=== PATIENT | male | born 1945 | race Caucasian/White ===

== ENCOUNTER 2016-12-16 09:52 | Observation (INO) | payer MEDICARE ==
[~2016-12-16] VITALS: Ht 167.6 cm; Wt 109.6 kg
[~2016-12-16 09:52] MED LIST: ALLEGRA-D 2424 HOUR PO; ATORVASTATI80 MG/TAB PO; AUGMENTIN500TAB PO; BLOOD GLUCOSE TEST S VI; CLONIDINE0.1 MG PO; DOXYCYCL HYC100 MG PO; FLONASE NASAL50 MCG; GLIPIZIDE5 MG PO; HYDROCHLOROT25 MG PO; LISINOPRIL20 MG PO; LORTAB 5-325 MG1 TAB PO; METFORMIN HCL1000 MG PO; METFORMIN500 MG PO; METOCLOPRAM10 MG PO; METOPROL TAR100 MG PO; METOPROL TAR25 MG PO; PANTOPRAZOLE SO40 MG PO; ZESTRIL40 MG PO
--- NOTE | 2016-12-16 10:05 | NUR ---
PT ALERT AND ORIENTED X 4, AIRWAY PATENT, RESP EVEN AND NON LABORED, SKIN P/W/D. NAIL BEDS ON BILATERAL HANDS APPEAR CYANOTIC. COOL TO TOUCH. POSITIVE RADIAL PULSES NOTED
--- NOTE | 2016-12-16 11:00 | NUR ---
PT SITTING UP IN BED, NO COMPLAINTS VOICED , AIRWAY PATENT, RESP EVEN AND NON LABORED. NAIL BEDS APPEAR SLIGHTLY CYANOTIC. WILL CONTINUE TO MONITOR 02 100%
[2016-12-16 11:27] LABS: HEMATOCRIT 36.7 % (39.0-50.0); HEMOGLOBIN 12.7 g/dl (14.0-18.0); IMMATURE GRANULOCYTES 0.4 % (0.0-1.0); MEAN CELL VOLUME 89.5 fL CALC (80.0-100.0); MEAN CORPUSCULAR HGB CONC 34.6 g/L CALC (32.0-36.0); NEUT# 5.37 thou/uL (1.82-7.42); RED BLOOD COUNT 4.1 mill/uL (4.70-6.10); RED CELL DISTRI WIDTH 13.5 % (11.5-15.5)
[2016-12-16 11:37] LABS: ALBUMIN 4.4 g/dL (3.2-5.0); ALKALINE PHOSPHATASE 51 u/l (38-126); ANION GAP 15 (6-22 (CALC)); BILIRUBIN, TOTAL 0.5 mg/dL (0.0-1.4); BUN 17 mg/dL (8-23); BUN/CREATININE RATIO 19 (12-20 (CALC)); CALCIUM 9.3 mg/dL (8.4-10.2); CARBON DIOXIDE 30 mmol/l (22-30); CHLORIDE 98 mmol/l (95-108); CREATININE 0.9 mg/dL (0.7-1.3); GFR > 60 ML/MIN (>=60 (CALC)); GFR FOR AFR.AMER. > 60 ML/MIN (>=60 (CALC)); GLUCOSE 117 mg/dL (82-115); POTASSIUM 4.3 mmol/l (3.5-5.1); SGOT/AST 36 u/l (19-48); SGPT/ALT 41 u/l (11-66); SODIUM 139 mmol/l (137-146)
[2016-12-16 11:47] LABS: MYOGLOBIN 72 ng/mL (0 - 121)
--- NOTE | 2016-12-16 12:30 | NUR ---
OOB TO USE URINAL , PT VOIDED 900CC CLEAR YELLOW URINE. NO C/O SOB VOICED. VSS.
--- NOTE | 2016-12-16 13:30 | NUR ---
WARM BLANKETS GIVEN FOR COMFORT. NO CHANGE IN PT STATUS.
--- NOTE | 2016-12-16 14:35 | NUR ---
OOB TO USE URINAL PT VOIDED 450CC CLEAR YELLOW URINE.
[2016-12-16] MEDS ORDERED: ASPIRIN EC81 MG PO (14:42)
[2016-12-16] MEDS ORDERED: CARVEDILOL12.5 MG PO (14:42)
[2016-12-16] MEDS ORDERED: LASIX 40 MG40 MG/TAB PO (14:43)
[2016-12-16] MEDS ORDERED: AMLODIPINE5 MG PO (14:43)
[2016-12-16] MEDS ORDERED: SPIRONOLACT25 MG PO (14:43)
--- NOTE | 2016-12-16 15:22 | NUR ---
SBAR PRINTED TO FLOOR
--- NOTE | 2016-12-16 16:50 | NUR ---
Admission Note Report Given to: SBAR PRINTED TO FLOOR Transported by: Wheelchair X Stretcher Transported with: X Nurse Transporter X Patent IV O2 X Machine Container Washer
[2016-12-16 16:55] VITALS: BP 164/75
--- NOTE | 2016-12-16 18:15 | NUR ---
PT ARRIVED TO FLOOR AT 1702 VIA STRETCHER ACCOMPANIED BY THOMAS MOJICA. TP DENIES PAIN. REPORTING OF CONCERNS ENCOURAGED. PLAN OF CARE DISCUSSED. PT ORIENTED TO ROOM AND EQUIPMENT. CALL LIGHT REVIEWED AND IN REACH. PT STATES UNDERSTANDING.
[2016-12-16 19:00] VITALS: BP 143/62
--- NOTE | 2016-12-16 20:06 | NUR ---
REPORT RECEIVED FROM FERDINAND FULLER; NO S/S OF DISTRESS AT THIS TIME; WILL CONTINUE TO MONITOR, PT.ENCOURAGED TO CALL NEEDS ARISE
[2016-12-16 23:18] VITALS: BP 148/75
--- NOTE | 2016-12-17 01:00 | NUR ---
PT.SLEEPING W/ LIGHTS OUT, NO S/S OF DISTRESS AT THIS TIME
[2016-12-17 04:39] VITALS: BP 114/72
--- NOTE | 2016-12-17 04:45 | NUR ---
ED CALLED TO REPORT PT.IS IN V-TACH PER BEHAVIOR MANAGEMENT SPECIALIST, PT.APPEARS ASYMPTOMATIC, V/S ARE STABLE, EKG ORDERED SHOWING NORMAL SINUS RHYTHM, ED NOW SHOWING NORMAL SR ON BEHAVIOR MANAGEMENT SPECIALIST.
[2016-12-17 05:20] LABS: ALBUMIN 3.7 g/dL (3.2-5.0); ALKALINE PHOSPHATASE 51 u/l (38-126); ANION GAP 15 (6-22 (CALC)); BILIRUBIN, TOTAL 0.5 mg/dL (0.0-1.4); BUN 15 mg/dL (8-23); BUN/CREATININE RATIO 18 (12-20 (CALC)); CARBON DIOXIDE 28 mmol/l (22-30); CHLORIDE 102 mmol/l (95-108); CREATININE 0.8 mg/dL (0.7-1.3); GFR > 60 ML/MIN (>=60 (CALC)); GFR FOR AFR.AMER. > 60 ML/MIN (>=60 (CALC)); GLUCOSE 101 mg/dL (82-115); POTASSIUM 4.3 mmol/l (3.5-5.1); SGOT/AST 21 u/l (19-48); SGPT/ALT 39 u/l (11-66); SODIUM 140 mmol/l (137-146); TOTAL PROTEIN 6.8 g/dL (6.3-8.2)
[2016-12-17 05:34] LABS: HEMATOCRIT 36.3 % (39.0-50.0); HEMOGLOBIN 12.5 g/dl (14.0-18.0); IMMATURE GRANULOCYTES 0.3 % (0.0-1.0); MEAN CELL VOLUME 89.6 fL CALC (80.0-100.0); MEAN CORPUSCULAR HGB 30.9 pG CALC (26.0-32.0); MEAN CORPUSCULAR HGB CONC 34.4 g/L CALC (32.0-36.0); NEUT# 5.88 thou/uL (1.82-7.42); RED BLOOD COUNT 4.05 mill/uL (4.70-6.10); RED CELL DISTRI WIDTH 13.7 % (11.5-15.5)
--- NOTE | 2016-12-17 07:13 | NUR ---
BEDSIDE REPORT RECEIVED FROM THOMAS AMADOR. PT SITTING IN CHAIR AT BEDSIDE. DENIES PAIN. REPORTING OF CONCERNS ENCOURAGED. PLAN OF CARE DISCUSSED. PT STATES ANTICIPATION OF DISCHARGE. DISCHARGE PROCESS REVIEWED. CALL LIGHT REVIEWED AND IN REACH. PT STATES UNDERSTANDING.
[2016-12-17 07:35] VITALS: BP 133/63
[2016-12-17 07:37] VITALS: BP 133/63
== END 2016-12-17 12:55 | disposition home or self-care (01) ==
LOC: ENPENDDIS → ED 09:52 → ED-I 14:38 → ED 15:19 → MS2 15:20
PROVIDERS: Emergency Medicine; ADMIT Internal Medicine Geriatric Medicine; ATTEND Internal Medicine Geriatric Medicine
DX: I73.00 Raynaud's syndrome without gangrene (principal); I11.0 Hypertensive heart disease with heart failure; I50.9 Heart failure, unspecified; E78.5 Hyperlipidemia, unspecified; E11.9 Type 2 diabetes mellitus without complications; I44.7 Left bundle-branch block, unspecified; I25.10 Atherosclerotic heart disease of native coronary artery without angina pectoris
CPT/HCPCS: G0378

== ENCOUNTER → 2018-11-27 | Outpatient (REF) ==
[~2018-11-27] MED LIST changes: +AMLODIPINE5 MG PO; +ASPIRIN EC81 MG PO; +CARVEDILOL12.5 MG PO; +LASIX 40 MG40 MG/TAB PO; +SPIRONOLACT25 MG PO
== END | disposition home or self-care (01) | DRG 305 ==
LOC: LAB 09:16
PROVIDERS: ATTEND Internal Medicine Geriatric Medicine
DX: I10 Essential (primary) hypertension (principal); E78.5 Hyperlipidemia, unspecified; E11.29 Type 2 diabetes mellitus with other diabetic kidney complication

== ENCOUNTER 2022-04-15 07:10 | Day surgery (SDC) | payer MEDICARE ==
[~2022-04-15] VITALS: Ht 172.7 cm; Wt 104.3 kg
[~2022-04-15 07:10] MED LIST changes: +B121000 MC1 PO; +D325 MCG PO; +ENTRESTO 97-1031 TAB PO; +JARDIANCE10 MG PO; +MULTI ADULT GUM1 CHW PO; +PENTOXIFYLLI400 M1 PO; +ROSUVASTATIN CA40 MG PO; +TYLENOL 8 HOUR650 MG PO; +VITAMIN D35000 UNIT PO; +[UNRECOGNIZED DRUG - CODE] PO
[2022-04-15 09:35] VITALS: BP 134/83
== END 2022-04-15 10:30 | disposition home or self-care (01) ==
LOC: ENDO 07:10 → ORM 08:45 → ENDO 10:30
PROVIDERS: ATTEND Surgery
PROC: 0DBN8ZX Excision of Sigmoid Colon, Via Natural or Artificial Opening Endoscopic, Diagnostic (ICD-10-PCS; principal; 2022-04-15)
PROC: 0DBL8ZX Excision of Transverse Colon, Via Natural or Artificial Opening Endoscopic, Diagnostic (ICD-10-PCS; 2022-04-15)
PROC: 0DBE8ZX Excision of Large Intestine, Via Natural or Artificial Opening Endoscopic, Diagnostic (ICD-10-PCS; 2022-04-15)
PROC: 0DB68ZX Excision of Stomach, Via Natural or Artificial Opening Endoscopic, Diagnostic (ICD-10-PCS; 2022-04-15)
PROC: 0D748ZZ Dilation of Esophagogastric Junction, Via Natural or Artificial Opening Endoscopic (ICD-10-PCS; 2022-04-15)
DX: D12.3 Benign neoplasm of transverse colon (principal); D12.6 Benign neoplasm of colon, unspecified; K63.5 Polyp of colon; K57.30 Diverticulosis of large intestine without perforation or abscess without bleeding; K29.50 Unspecified chronic gastritis without bleeding; K22.2 Esophageal obstruction; K21.9 Gastro-esophageal reflux disease without esophagitis; K44.9 Diaphragmatic hernia without obstruction or gangrene; E11.9 Type 2 diabetes mellitus without complications; I10 Essential (primary) hypertension